=== PATIENT | female | born 1940 | race African-American/Black ===

== ENCOUNTER 2016-12-08 17:21 | Emergency (ER) ==
--- NOTE | 2016-12-08 17:55 | PROVIDER DOCUMENTATION ---
HPI-Neurological Disorder - General Source: patient, EMS - History of Present Illness-Neuro Onset/Duration: reports: abrupt, just prior to arrival Timing: reports: resolved prior to arrival Context: reports: found unresponsive by family Any recent trauma/injury?: reports: none New weakness or altered sensation location:: reports: none Cognitive Baseline: alert, oriented x3 Associated Symptoms: reports: seizures Similar Symptoms Previously?: Yes (Pt has hx of seizures but no seizure medication) - Seizure First time to have a seizure?: No Witnessed seizure?: Yes (family witnessed it) Episode details: reports: unknown duration, unknown number Episode Frequency: occasional episodes Character of Seizure: reports: lost consciousness Seizure related injury: none <Cate Concepcion - Last Filed: 12/08/16 17:49> <Grant Hagan - Last Filed: 12/08/16 21:45> - General Chief Complaint: Seizure Stated Complaint: SEIZURE Time Seen by Provider: 12/08/16 17:43 Allergies/Adverse Reactions: Patient Allergies Allergy/AdvReac Type Severity Reaction Status Date / Time No Known Allergies Allergy Verified 06/10/16 21:50 Home Medications: Home Medication List Medication Instructions Recorded Confirmed Last Taken Type Aspirin [Leny Chewable Aspirin] 81 mg PO DAILY 04/26/15 06/10/16 03/07/16 History Oxybutynin [Ditropan] 5 mg PO DAILY 04/26/15 06/10/16 03/07/16 History Sitagliptin Phos/Metformin HCl 1 tab PO DAILY 03/07/16 06/11/16 03/07/16 History [Janumet 50-500 mg Tablet] PRAVAstatin [Pravachol] 40 mg PO QHS #30 tablet 03/08/16 06/10/16 Unknown Rx Acetaminophen [Tylenol Extra 500 mg PO Q8H PRN PRN 04/08/16 06/10/16 Unknown History Strength] Allopurinol [Zyloprim] 300 mg PO DAILY 04/08/16 06/10/16 Unknown History Bisacodyl [Dulcolax] 5 mg PO DIRECTED PRN 04/08/16 06/10/16 Unknown History Lisinopril/Hydrochlorothiazide 1 each PO DAILY 04/08/16 06/10/16 Unknown History [Lisinopril-Hctz 20-12.5 mg Tab] Meloxicam 15 mg PO DAILY 04/08/16 06/10/16 Unknown History Sitagliptin Phos/Metformin HCl 1 tab PO QHS 06/10/16 06/10/16 Unknown History [Janumet 50-500 mg Tablet] Tramadol HCl 50 mg PO TID PRN PRN 06/10/16 06/10/16 Unknown History Allopurinol [Zyloprim] 300 mg PO DAILY #0 tablet 06/12/16 Unknown Rx - History of Present Illness-Neuro Nature of Presenting Problem: 76 yo AAWagner is brought to ED by EMS following a seizure at home in her bed. Pt denies hitting her head or biting her tongue. Pt has hx of seizures but is not on seizure medication. Upon arrival to ED, pt is alert and oriented and in no apparent distress. (Cate Concepcion) Review of Systems - Adult - REVIEW OF SYSTEMS - ADULT Constitutional: reports: no symptoms reported. denies: chills, fever Eyes: reports: no symptoms reported. denies: decreased vision, double vision Ears, Nose, Mouth & Throat: reports: no symptoms reported. denies: ear pain, tinnitus, mouth swelling Cardiovascular: reports: no symptoms reported. denies: chest pain, heart murmur Respiratory: reports: no symptoms reported. denies: cough, shortness of breath Gastrointestinal: reports: no symptoms reported. denies: nausea, vomiting Genitourinary: reports: no symptoms reported. denies: dysuria, flank pain Musculoskeletal: reports: no symptoms reported. denies: joint pain, joint swelling Integumentary: reports: no symptoms reported. denies: hives, itching Neurological: reports: seizure. denies: headache/migraines Psychiatric: reports: no symptoms reported. denies: anxiety, depression Endocrine: reports: no symptoms reported. denies: cold intolerance, heat intolerance Hematologic/Lymphatic: reports: no symptoms reported. denies: blood clots, lymphedema Allergic/Immunologic: reports: no symptoms reported. denies: allergic reactions , eczema All Other Systems: Reviewed and Negative <Cate Concepcion - Last Filed: 12/08/16 17:49> Past History - Adult - PAST MEDICAL HISTORY-ADULT Review of Records: reports: Old Records Reviewed, Nursing Assessment Review, Medications Reviewed Major Childhood Illnesses: reports: denies history Cardiovascular: reports: HTN Respiratory: reports: denies history Gastrointestinal: reports: denies history Genitourinary: reports: denies history Musculoskeletal: reports: denies history Neurological: reports: denies history Endocrine/Immune: reports: cancer, Diabetes Other Conditions: reports: other (gout) - PRIOR SURGERIES/PROCEDURES Surgical/Procedure History: reports: hysterectomy, orthopedic (extremity) ( carpal tunnel) - IMMUNIZATION STATUS Childhood Immunizations: See Nurse Assessment Flu Vaccine: See Nurse Assessment - FAMILY HISTORY Family History: reviewed, not pertinent <Cate Concepcion - Last Filed: 12/08/16 17:49> Physical Exam- Neurological - Physical Exam-Neuro Initial Vital Signs Reviewed: Yes General Appearance: alert, mild distress Eye Exam: bilateral eye: normal inspection, PERRL, EOMI HENMT: normocephalic/atraumatic, moist mucous membranes, normal ENT inspection Head Injury: no evidence of injury Neck: non-tender, full range of motion, supple Respiratory: chest non-tender, lungs clear, normal breath sounds Cardiovascular: normal peripheral pulses, regular rate, rhythm Abdominal Exam: normal bowel sounds, non tender, soft Lymphatic: no adenopathy Extremity: normal range of motion, non-tender insurance administrative assistant Exam: normal hearing, normal speech, PERRL Coordination/Gait: normal finger to nose Motor/Sensory: no motor deficit, no sensory deficit, no pronator drift Neurologic: grossly normal, no motor/sensory deficits Integumentary: normal color, normal turgor, warm/dry Psych/Mental Status: normal mood/affect, normal thought content, normal thought process, oriented x 3 - Glascow Coma Scale Best Eye Response: (4) open spontaneously Best Verbal Response: (5) oriented Best Motor Response: (6) obeys commands Total Glascow Score: 15 <Cate Concepcion - Last Filed: 12/08/16 17:49> Progress <Cate Concepcion - Last Filed: 12/08/16 17:49> - EKG 1 Time of EKG reading by physician:: 17:54 EKG Read and Signed by:: Juan Claire EKG Interpretation (*Must complete 3 of following elements*): Abnormal Rate: 66 Rhythm: NSR [place]: normal QRS: normal CO Interval: normal Comments: ST AND T WAVE ABNORMALITY. - XRAY 1 XRAY: Bilateral XRAY Study: Chest XRAY Interpretation: NEGATIVE - CT/MRI 1 CT Study: Head CT Results: NO HEMORRHAGE. CHRONIC MICROVASCULAR ISCHEMIC CHANGES. <Grant Hagan - Last Filed: 12/08/16 21:45> - PLAN OF CARE/RESULTS Progress/Plan/Lab Results: Laboratory Tests 12/08/16 12/08/16 12/08/16 17:40 17:40 17:40 WBC RBC Hgb Hct MCV MCH MCHC RDW Std Deviation Plt Count MPV Immature Gran % (Auto) Neut % (Auto) Lymph % (Auto) [place] % (Auto) Eos % (Auto) Baso % (Auto) Immature Gran # (Auto) Neut # (Auto) Lymph # (Auto) [place] # (Auto) Eos # (Auto) Baso # (Auto) PT INR APTT (Factor Assay) Sodium 132 L Potassium 3.7 Chloride 95 L Carbon Dioxide 19 L Anion Gap 18 BUN 8 Creatinine 0.7 Estimated GFR/1.73 m2 > 60 BUN/Creatinine Ratio 11 Glucose 139 H Calculated Osmolality 265 Calcium 9.0 Total Bilirubin 0.60 AST 17 ALT 9 L Alkaline Phosphatase 92 Creatine Kinase 44 Troponin T < 0.010 Total Protein 6.7 Albumin 3.6 Globulin 3.0 Albumin/Globulin Ratio 1.0 Plasma Lactate Urine Source Urine Color Urine Clarity Urine pH Ur Specific [place] Urine Protein Urine Ketones Urine Blood Urine Nitrite Urine Bilirubin Urine Urobilinogen Urine Microscopic RBC Urine WBC Urine Microscopic WBC Ur Epithelial Cells Urine Bacteria Urine Glucose Urine Opiates Screen Ur Oxycodone Screen Urine Methadone Screen Ur Barbituates Screen Ur Tricyclics Screen Ur Phencyclidine Scrn Ur Amphetamines Screen U Methamphetamines Scrn Urine MDMA Screen U Benzodiazepines Scrn Urine Cocaine Screen U Cannabinoids Screen Plasma/Serum Ethyl Alc 12/08/16 12/08/16 12/08/16 17:40 17:40 18:30 WBC 11.85 H RBC 4.67 Hgb 13.0 Hct 39.3 MCV 84.2 MCH 27.8 MCHC 33.1 RDW Std Deviation 16.2 H Plt Count 316 MPV 12.0 H Immature Gran % (Auto) 0.3 Neut % (Auto) 71.6 Lymph % (Auto) 18.6 L [place] % (Auto) 8.0 Eos % (Auto) 1.3 Baso % (Auto) 0.2 Immature Gran # (Auto) 0.04 Neut # (Auto) 8.48 H Lymph # (Auto) 2.21 [place] # (Auto) 0.95 H Eos # (Auto) 0.15 Baso # (Auto) 0.02 PT 14.3 INR 1.08 APTT (Factor Assay) 40.0 Sodium Potassium Chloride Carbon Dioxide Anion Gap BUN Creatinine Estimated GFR/1.73 m2 BUN/Creatinine Ratio Glucose Calculated Osmolality Calcium Total Bilirubin AST ALT Alkaline Phosphatase Creatine Kinase Troponin T Total Protein Albumin Globulin Albumin/Globulin Ratio Plasma Lactate Urine Source CLEAN CATCH Urine Color YELLOW Urine Clarity SL. CLOUDY A Urine pH 7.0 Ur Specific [place] 1.005 Urine Protein TRACE A Urine Ketones NEGATIVE Urine Blood NEGATIVE Urine Nitrite NEGATIVE Urine Bilirubin NEGATIVE Urine Urobilinogen NORMAL Urine Microscopic RBC Not Reportable Urine WBC NEGATIVE Urine Microscopic WBC <10 Ur Epithelial Cells <10 Urine Bacteria 2+ Urine Glucose NEGATIVE Urine Opiates Screen Ur Oxycodone Screen Urine Methadone Screen Ur Barbituates Screen Ur Tricyclics Screen Ur Phencyclidine Scrn Ur Amphetamines Screen U Methamphetamines Scrn Urine MDMA Screen U Benzodiazepines Scrn Urine Cocaine Screen U Cannabinoids Screen Plasma/Serum Ethyl Alc 12/08/16 12/08/16 18:30 18:43 WBC RBC Hgb Hct MCV MCH MCHC RDW Std Deviation Plt Count MPV Immature Gran % (Auto) Neut % (Auto) Lymph % (Auto) [place] % (Auto) Eos % (Auto) Baso % (Auto) Immature Gran # (Auto) Neut # (Auto) Lymph # (Auto) [place] # (Auto) Eos # (Auto) Baso # (Auto) PT INR APTT (Factor Assay) Sodium Potassium Chloride Carbon Dioxide Anion Gap BUN Creatinine Estimated GFR/1.73 m2 BUN/Creatinine Ratio Glucose Calculated Osmolality Calcium Total Bilirubin AST ALT Alkaline Phosphatase Creatine Kinase Troponin T Total Protein Albumin Globulin Albumin/Globulin Ratio Plasma Lactate 3.3 H Urine Source Urine Color Urine Clarity Urine pH Ur Specific [place] Urine Protein Urine Ketones Urine Blood Urine Nitrite Urine Bilirubin Urine Urobilinogen Urine Microscopic RBC Urine WBC Urine Microscopic WBC Ur Epithelial Cells Urine Bacteria Urine Glucose Urine Opiates Screen NONE DETECTED Ur Oxycodone Screen NONE DETECTED Urine Methadone Screen NONE DETECTED Ur Barbituates Screen NONE DETECTED Ur Tricyclics Screen NONE DETECTED Ur Phencyclidine Scrn NONE DETECTED Ur Amphetamines Screen NONE DETECTED U Methamphetamines Scrn NONE DETECTED Urine MDMA Screen NONE DETECTED U Benzodiazepines Scrn NONE DETECTED Urine Cocaine Screen NONE DETECTED U Cannabinoids Screen NONE DETECTED Plasma/Serum Ethyl Alc Orders Category Date Time Status Cardiac Monitoring DIRECTED Care 12/08/16 17:30 Active Finger Stick Blood Sugar (ED) DIRECTED Care 12/08/16 17:30 Active Oxygen Therapy- ED Nursing DIRECTED Care 12/08/16 17:30 Active Saline Loc NOW Care 12/08/16 17:30 Active CHEST-PORTABLE [RAD] Stat Exams 12/08/16 17:30 Draft HEAD W/O CONTRAST [CT] Stat Exams 12/08/16 19:24 Draft ALCOHOL BLOOD Stat Lab 12/08/16 17:40 Completed CBC WITH ELECTRONIC DIFF [HEME] Stat Lab 12/08/16 17:40 Completed CK PROFILE [SP CHEM] Stat Lab 12/08/16 17:40 Completed COMPREHENSIVE METABOLIC PANEL [CHEM] Stat Lab 12/08/16 17:40 Completed LACTATE, PLASMA [CHEM] Stat Lab 12/08/16 18:43 Completed PROTIME WITH INR PL [COAG] Stat Lab 12/08/16 17:[address] [COAG] Stat Lab 12/08/16 17:40 Completed TROPONIN T Stat Lab 12/08/16 17:[address] W/POSS RFLX CULT [URINALYSIS] Stat Lab 12/08/16 18:30 Completed URINE CULTURE [RM] Routine Lab 12/08/16 19:23 Ordered [address]INE DRUG SCREEN [address] Stat Lab 12/08/16 18:30 Completed Pulse Oximetry Stat Oth 12/08/16 17:30 Active EKG [EKG] Stat Ther 12/08/16 17:30 Draft Vital Signs - 24 hr 12/08/16 12/08/16 12/08/16 17:22 18:32 19:40 Temperature 99.2 F Pulse Rate 83 58 L 63 Respiratory 18 18 18 Rate Blood Pressure 188/85 172/077 174/082 O2 Sat by Pulse 96 99 100 Oximetry 12/08/16 20:40 Temperature Pulse Rate 62 Respiratory 17 Rate Blood Pressure 139/083 O2 Sat by Pulse 99 Oximetry (Grant Hagan) Departure <Cate Concepcion - Last Filed: 12/08/16 17:49> - Departure Time of Disposition Order: 21:44 Certified Medical Emergency: Emergent <Grant Hagan - Last Filed: 12/08/16 21:45> - Departure DIAGNOSIS: Seizure UTI (urinary tract infection) Qualifiers: Urinary tract infection type: site unspecified Hematuria presence: with hematuria Qualified Code(s): N39.0 - Urinary tract infection, site not specified ; R31.9 - Hematuria, unspecified Disposition: HOME 01 Condition: Stable Additional Instructions: ED Follow Up Instructions: You have been treated by a care provider in the Emergency Department. These instructions are being provided to you so you can have an understanding of how to care for yourself upon discharge. Upon discharge from the Emergency Department, you are responsible for making arrangements for follow-up care by a physician of your choice. Take all prescribed medications as directed. Return to the Emergency Department immediately for any new or worsening symptoms. You may call the Physician Referral phone number at [phone] to obtain a list of Physicians who are taking new patients. Attestation - Scribe Verification/Attestation Scribe:: Cate Concepcion Acting as Scribe for:: Clay Grider Scribe documention review:: This chart was documented by a scribe and accurately reflects the service the provider performed and the decisions made by the provider. - Physician/ GENNA Attestation Patient care was provided by Advanced Practice Provider:: No <Cate Concepcion - Last Filed: 12/08/16 17:49> - Scribe Verification/Attestation Scribe:: Grant Hagan Acting as Scribe for:: Juan Claire Scribe documention review:: This chart was documented by a scribe and accurately reflects the service the provider performed and the decisions made by the provider. <Grant Hagan - Last Filed: 12/08/16 21:45> Physician Attestation
[2016-12-08 17:56] LABS: MANUAL DIFF NEEDED? NO
[2016-12-08 17:58] LABS: BASO% 0.2 % (0.0-0.8); EOS# 0.15 X1000 (0.0-0.7); EOS% 1.3 % (0.0-10.0); HEMATOCRIT 39.3 % (37.0-47.0); IMM GRAN# 0.04 X1000 (0.0-0.04); IMM GRAN% 0.3 % (0.0-0.5); LYMPH# 2.21 X1000 (1.2-3.4); LYMPH% 18.6 % (20.5-51.1); MCH 27.8 PG (27-31); MCHC 33.1 g/dL (33-37); MCV 84.2 FL (81-99); MONO# 0.95 X1000 (0.11-0.59); NEUT% 71.6 % (42.2-75.2); PLT 316 X1000 (130-400); RBC 4.67 XMIL (4.2-5.4)
[2016-12-08 18:25] LABS: AGAP 18; ALBUMIN 3.6 g/dL (3.5-5.0); ALKALINE PHOSPHATASE 92 U/L (32-104); BUN 8 mg/dL (8-22); CHLORIDE 95 mmol/L (98-107); CK PROFILE 44 U/L (24-173); COSMO 265; GOT 17 U/L (10-30); GPT 9 U/L (10-36); POTASSIUM 3.7 mmol/L (3.5-5.1); SODIUM 132 mmol/L (136-145); TCO2 19 mmol/L (25-35); TOTAL PROTEIN 6.7 g/dL (6.3-8.3)
[2016-12-08 18:34] LABS: URINE SOURCE CLEAN CATCH
[2016-12-08 18:42] LABS: INR 1.08 (0.86-1.15); PROTIME 14.3 Seconds (12.1-15.5)
--- NOTE | 2016-12-08 18:48 | EKG Report ---
Test Performed on : 12/08/2016 5:53:05 PM Test Reason : AMS Blood Pressure : / mmHG Vent. Rate : 066 BPM Atrial Rate : 066 BPM P-R Int : 144 ms QRS Dur : 094 ms QT Int : 414 ms P-R-T Axes : 059 014 101 degrees QTc Int : 434 ms Normal sinus rhythm. ST & T wave abnormality, consider lateral ischemia Abnormal ECG When compared with ECG of 11-JUN-2016 00:16, Minimal criteria for Inferior infarct are no longer present T wave inversion now evident in Anterolateral leads QT has shortened Unconfirmed Result
[2016-12-08 19:17] LABS: UR AMPHETAMINES QUAL NONE DETECTED (NONE DETECT); UR BARBITUATES QUAL NONE DETECTED (NONE DETECT); UR BENZODIAZEPIN QUAL NONE DETECTED (NONE DETECT); UR CANNABINOIDS QUAL NONE DETECTED (NONE DETECT); UR COCAINE QUAL NONE DETECTED (NONE DETECT); UR MDMA QUAL NONE DETECTED (NONE DETECT); UR METHADONE QUAL NONE DETECTED (NONE DETECT); UR METHAMPHETAMINE QUAL NONE DETECTED (NONE DETECT); UR OPIATES QUAL NONE DETECTED (NONE DETECT); UR OXYCODONE QUAL NONE DETECTED (NONE DETECT); UR PCP QUAL NONE DETECTED (NONE DETECT); UR TCA QUAL NONE DETECTED (NONE DETECT)
[2016-12-08 19:19] LABS: BILIRUBIN URINE NEGATIVE (NEGATIVE); BLOOD URINE NEGATIVE (NEGATIVE); CLARITY SL. CLOUDY (CLEAR); COLOR YELLOW; GLUCOSE URINE NEGATIVE (NEGATIVE); LEUKOCYTES URINE NEGATIVE (NEGATIVE); NITRITE URINE NEGATIVE (NEGATIVE); PROTEIN URINE TRACE mg/dL (NEGATIVE); SP GRAVITY URINE 1.005; UROBILINOGEN URINE NORMAL
[2016-12-08 19:23] LABS: URINE CULTURE PL NEEDED? YES; URINE EPITHELIAL CELLS <10 /HPF (<10); URINE WBC <10 /HPF (<10)
--- NOTE | 2016-12-08 19:38 | Diag Imaging Result Document ---
PROCEDURE NAME: CHEST-PORTABLE - 12/08/2016 PORTABLE CHEST: COMPARISON: Compared to 04/08/2016. The lungs are well expanded. The heart is not enlarged. The vessels are not distended. No pneumonia. No pleural effusions identified. IMPRESSION: Negative chest.
--- NOTE | 2016-12-08 21:35 | Diag Imaging Result Document ---
PROCEDURE NAME: HEAD W/O CONTRAST - 12/08/2016 CT BRAIN WITHOUT CONTRAST COMPARISON: 06/10/16 FINDINGS: No parenchymal hemorrhage. No epidural or subdural hematoma. No subarachnoid hemorrhage. There are prominent microvascular ischemic changes. No mass identified on this noncontrasted exam. No midline shift. No hydrocephalus. No sinus opacification. IMPRESSION: 1. No hemorrhage. 2. Chronic microvascular ischemic changes. A preliminary report was given at 9:24 p.m.
[2016-12-08 22:12] VITALS: BP 157/090
== END 2016-12-08 22:12 | disposition home or self-care (01) ==
LOC: P.ED 17:21
DX: R56.9 Unspecified convulsions (principal); N39.0 Urinary tract infection, site not specified; R31.9 Hematuria, unspecified; I10 Essential (primary) hypertension; E11.9 Type 2 diabetes mellitus without complications; Z85.9 Personal history of malignant neoplasm, unspecified; M10.9 Gout, unspecified; R94.31 Abnormal electrocardiogram [ECG] [EKG]; Z79.899 Other long term (current) drug therapy; Z79.1 Long term (current) use of non-steroidal anti-inflammatories (NSAID); Z79.82 Long term (current) use of aspirin
CPT/HCPCS: 70450; 71010; 80053; 80305; 81001; 82550; 83605; 84484; 85025; 85610; 85730; 87088; 93005; G0480; 80320

== ENCOUNTER 2017-05-15 20:58 | Observation (INO) ==
[2017-05-15] MEDS ORDERED: ATIVAN ONE (22:08)
[2017-05-15] MEDS ORDERED: ATIVAN IV ONE (22:11)
[2017-05-15 23:05] LABS: MANUAL DIFF NEEDED? NO
[2017-05-15 23:11] LABS: BASO% 0.2 % (0.0-0.8); EOS% 0.7 % (0.0-10.0); HEMATOCRIT 36.6 % (37.0-47.0); HEMOGLOBIN 12.2 g/dL (12.0-16.0); IMM GRAN% 0.7 % (0.0-0.5); LYMPH# 3.07 X1000 (1.2-3.4); LYMPH% 20.7 % (20.5-51.1); MCH 29.3 PG (27-31); MCHC 33.3 g/dL (33-37); MCV 87.8 FL (81-99); MONO# 0.74 X1000 (0.11-0.59); MPV 12.8 FL (7.4-10.4); NEUT% 72.7 % (42.2-75.2); PLT 307 X1000 (130-400); RBC 4.17 XMIL (4.2-5.4)
[2017-05-15 23:18] LABS: CALCIUM 9.1 mg/dL (8.8-10.2); TOTAL BILIRUBIN 0.4 mg/dL (0.20-1.00); TOTAL PROTEIN 7.1 g/dL (6.3-8.3)
[2017-05-15] MEDS ORDERED: KEPPRA 1,000 MG/NS 1,000 MG/100 ML IVPB IV ONE (23:53)
[2017-05-15] MEDS ORDERED: NS 500 ML IV ONE (23:54)
--- NOTE | 2017-05-16 | PROVIDER DOCUMENTATION ---
HPI-General Adult - General Chief Complaint: Seizure Stated Complaint: seizure Time Seen by Provider: 05/15/17 22:56 Source: family, RN notes reviewed Unable to obtain history due to:: altered (Post seizure) Allergies/Adverse Reactions: Patient Allergies Allergy/AdvReac Type Severity Reaction Status Date / Time No Known Allergies Allergy Verified 05/15/17 21:05 Home Medications: Home Medication List Medication Instructions Recorded Confirmed Last Taken Type Aspirin [Leny Chewable Aspirin] 81 mg PO DAILY 04/26/15 06/10/16 03/07/16 History Oxybutynin [Ditropan] 5 mg PO DAILY 04/26/15 06/10/16 03/07/16 History Sitagliptin Phos/Metformin HCl 1 tab PO DAILY 03/07/16 06/11/16 03/07/16 History [Janumet 50-500 mg Tablet] PRAVAstatin [Pravachol] 40 mg PO QHS #30 tablet 03/08/16 06/10/16 Unknown Rx Acetaminophen [Tylenol Extra 500 mg PO Q8H PRN PRN 04/08/16 06/10/16 Unknown History Strength] Allopurinol [Zyloprim] 300 mg PO DAILY 04/08/16 06/10/16 Unknown History Bisacodyl [Dulcolax] 5 mg PO DIRECTED PRN 04/08/16 06/10/16 Unknown History Lisinopril/Hydrochlorothiazide 1 each PO DAILY 04/08/16 06/10/16 Unknown History [Lisinopril-Hctz 20-12.5 mg Tab] Meloxicam 15 mg PO DAILY 04/08/16 06/10/16 Unknown History Sitagliptin Phos/Metformin HCl 1 tab PO QHS 06/10/16 06/10/16 Unknown History [Janumet 50-500 mg Tablet] Tramadol HCl 50 mg PO TID PRN PRN 06/10/16 06/10/16 Unknown History Allopurinol [Zyloprim] 300 mg PO DAILY #0 tablet 06/12/16 Unknown Rx Nitrofurantoin Monohyd/M-Cryst 100 mg PO BID #20 capsule 12/08/16 Unknown Rx [Macrobid 100 mg Capsule] - History of Present Illness -Gen Adult Nature of Presenting Problems: Patient presents today with family due to 2 seizures at home. PMH of seizure disorder-not currently taking medications for it. While in the ER suffered two more seizures. Provided with Ativan and 1G Keppra. Patient stabilized. CT head no acute abnormalities noted. Location of Pain/Injury: reports: none Pain Radiation: reports: no radiation Quality of Pain: reports: none Severity: reports: moderate Onset/Duration: reports: abrupt (Today seizure x 2) Timing: reports: still present Context/Activities at Onset: reports: none Review of Systems - Adult - REVIEW OF SYSTEMS - ADULT Constitutional: reports: see HPI Eyes: reports: no symptoms reported Ears, Nose, Mouth & Throat: reports: no symptoms reported Cardiovascular: reports: no symptoms reported Respiratory: reports: no symptoms reported Gastrointestinal: reports: no symptoms reported Genitourinary: reports: no symptoms reported Musculoskeletal: reports: no symptoms reported Integumentary: reports: no symptoms reported Neurological: reports: seizure Psychiatric: reports: no symptoms reported Endocrine: reports: no symptoms reported Hematologic/Lymphatic: reports: no symptoms reported Allergic/Immunologic: reports: no symptoms reported All Other Systems: Reviewed and Negative Past History - Adult - PAST MEDICAL HISTORY-ADULT Review of Records: reports: Old Records Reviewed Major Childhood Illnesses: reports: denies history Cardiovascular: reports: HTN Respiratory: reports: denies history Gastrointestinal: reports: denies history Genitourinary: reports: denies history Musculoskeletal: reports: denies history Neurological: reports: denies history Endocrine/Immune: reports: cancer, Diabetes Other Conditions: reports: other (gout) - PRIOR SURGERIES/PROCEDURES Surgical/Procedure History: reports: hysterectomy, orthopedic (extremity) ( carpal tunnel) - IMMUNIZATION STATUS Childhood Immunizations: See Nurse Assessment Flu Vaccine: See Nurse Assessment - FAMILY HISTORY Family History: reviewed, not pertinent Physical Exam-General - CONSTITUTIONAL General Appearance: appears well (Post seizure --sleeping --in no acute distress.) - EYES Eyes: PERRL/EOMI - HEAD, EARS, NOSE, MOUTH & THROAT HENMT: normocephalic/atraumatic - NECK Neck: non-tender - RESPIRATORY Respiratory: lungs clear - CARDIOVASCULAR Cardiovascular: normal peripheral pulses, regular rate, rhythm - GASTROINTESTINAL (ABDOMEN) Abdominal Exam: normal bowel sounds, non tender, soft - LYMPHATIC Lymphatic: no adenopathy - MUSCULOSKELETAL Back Exam: normal inspection - NEUROLOGIC Neurologic: other (patient is non verbal in likely post ictal state.) Progress - PLAN OF CARE/RESULTS Progress/Plan/Lab Results: Vital Signs - 8 hr 05/15/17 20:59 05/15/17 21:00 05/15/17 22:00 Temperature 97.2 F L Pulse Rate 81 82 73 Respiratory Rate 14 21 18 Blood Pressure 143/93 121/69 O2 Sat by Pulse Oximetry 99 100 99 05/15/17 22:15 05/15/17 22:30 Temperature Pulse Rate 73 83 Respiratory Rate 22 18 Blood Pressure 165/85 O2 Sat by Pulse Oximetry 99 96 Laboratory Results - last 24 hr 05/15/17 05/15/17 22:20 22:20 WBC 14.82 H RBC 4.17 L Hgb 12.2 Hct 36.6 L MCV 87.8 MCH 29.3 MCHC 33.3 RDW Std Deviation 16.1 H Plt Count 307 MPV 12.8 H Immature Gran % (Auto) 0.7 H Neut % (Auto) 72.7 Lymph % (Auto) 20.7 [place] % (Auto) 5.0 Eos % (Auto) 0.7 Baso % (Auto) 0.2 Immature Gran # (Auto) 0.10 H Neut # (Auto) 10.78 H Lymph # (Auto) 3.07 [place] # (Auto) 0.74 H Eos # (Auto) 0.10 Baso # (Auto) 0.03 Sodium 137 Potassium 4.0 Chloride 94 L Carbon Dioxide 19 L Anion Gap 25 BUN 21 Creatinine 1.5 H Estimated GFR/1.73 m2 34 BUN/Creatinine Ratio 14 Glucose 153 H Calculated Osmolality 280 Calcium 9.1 Total Bilirubin 0.40 AST 20 ALT 8 L Alkaline Phosphatase 117 H Total Protein 7.1 Albumin 4.0 Globulin 3.0 Albumin/Globulin Ratio 1.0 Orders Category Date Time Status CHEST-2 VIEWS [RAD] Stat Exams 05/15/17 23:[address] HEAD W/O CONTRAST [CT] Stat Exams 05/15/17 23:51 Ordered CBC WITH DIFF [HEME] Stat Lab 05/15/17 22:20 Completed COMPREHENSIVE METABOLIC PANEL [CHEM] Stat Lab 05/15/17 22:20 Completed LACTATE, PLASMA [CHEM] Stat Lab 05/15/17 23:50 Ordered ua [URINALYSIS PL W/POSS RFLX CULT] [URINALYSIS] Stat Lab 05/15/17 23:50 Uncollected 0.9% Sodium Chloride Inj [Ns] 500 ml Med 05/15/17 23:54 Ordered IV 999 mls/hr Levetiracetam [Keppra] 1,000 mg Med 05/15/17 23:53 Ordered 0.9% Sodium Chloride Inj [Ns] 100 ml IV NOW Lorazepam [Ativan] Med 05/15/17 22:11 Discontinued 1 mg IV NOW ONE Lorazepam [Ativan] Med 05/15/17 22:08 Discontinued 2 mg .ROUTE .STK-MED ONE Result Diagrams: 05/15/17 22:20 05/15/17 22:20 - XRAY 1 XRAY: Bilateral Impression: See EMR Report - CT/MRI 1 CT Study: Head Impression: Normal, See EMR Report Departure - Departure Date of Disposition Decision: 05/16/17 Time of Disposition Decision: 01:45 DIAGNOSIS: Seizure, Leukocytosis Disposition: ADMITTED INPATIENT 09 Certified Medical Emergency: Emergent Condition: Fair Additional Freetext Instructions: Discussed case with Dr. Martin (PCP). Patient will be admitted to the floor for observation under telemetry. Further management pending patient status. Referrals and Follow-Ups: Romeo Martin MD [Primary Care Provider] - - Critical Care Note This patient required my direct & personal management of CC.: No Attestation - Physician/ GENNA Attestation Patient care was provided by Advanced Practice Provider:: No The physician spent face to face time with patient:: Yes Advanced Practice Provider documentation review:: Supervising physician onsite and consulted in the evaluation and care of this patient. The physician did have a face to face encounter with the patient.
[2017-05-16] MEDS ORDERED: NS 500 ML ONE (00:42)
[2017-05-16 01:42] LABS: BILIRUBIN URINE NEGATIVE (NEGATIVE); BLOOD URINE NEGATIVE (NEGATIVE); CLARITY CLEAR (CLEAR); COLOR YELLOW; GLUCOSE URINE NEGATIVE (NEGATIVE); LEUKOCYTES URINE NEGATIVE (NEGATIVE); NITRITE URINE NEGATIVE (NEGATIVE); PROTEIN URINE NEGATIVE (NEGATIVE); UROBILINOGEN URINE NORMAL
[2017-05-16 01:59] LABS: URINE CULTURE PL NEEDED? YES; URINE EPITHELIAL CELLS <10 /HPF (<10); URINE RBC <10 /HPF (<10); URINE WBC NS /HPF (<10)
[2017-05-16 02:01] LABS: URINE SOURCE CATH
--- NOTE | 2017-05-16 05:56 | Diag Imaging Result Doc PS360 ---
EXAM: CT HEAD W/O CONTRAST HISTORY: Seizures TECHNIQUE: CT brain without. Dose reduction protocol. COMPARISON: 12/08/2016 FINDINGS: No parenchymal hemorrhage. No epidural or subdural hematoma. No subarachnoid hemorrhage. No mass identified on this noncontrasted exam. No hydrocephalus. There are chronic microvascular ischemic changes and mild atrophy. No sinus opacification. IMPRESSION: Mild atrophy with chronic microvascular ischemic changes. A preliminary report was given at 1:04 AM Electronically signed by Margarito Sutherland 05/16/2017 5:53 AM
--- NOTE | 2017-05-16 06:28 | Diag Imaging Result Doc PS360 ---
EXAM: CHEST-2 VIEWS HISTORY: Seizures TECHNIQUE: Two views COMPARISON: 12/08/2016 FINDINGS: Poor inspiratory effort. The heart is not enlarged. The vessels are not distended. There are no infiltrates. No pleural effusions. IMPRESSION: No acute abnormality. Electronically signed by Margarito Sutherland 05/16/2017 6:25 AM
[2017-05-16] MEDS ORDERED: DULCOLAX PO PRN (08:18)
[2017-05-16] MEDS ORDERED: ULTRAM PO PRN (08:18)
[2017-05-16] MEDS ORDERED: TYLENOL PO PRN (08:18)
[2017-05-16] MEDS ORDERED: KEPPRA ONE (08:27)
[2017-05-16] MEDS ORDERED: KEPPRA 500 MG in NS 100 ML IV SCH (08:30)
[2017-05-16] MEDS ORDERED: KEPPRA 500 MG/NS 500 MG/100 ML IVPB IV SCH (08:30)
[2017-05-16] MEDS ORDERED: GLUCOPHAGE PO SCH (09:00)
[2017-05-16] MEDS ORDERED: JANUVIA PO SCH (09:00)
[2017-05-16] MEDS ORDERED: DITROPAN PO SCH (09:00)
[2017-05-16] MEDS ORDERED: HYDROCHLOROTHIAZIDE PO SCH (09:00)
[2017-05-16] MEDS ORDERED: ASPIRIN PO SCH (09:00)
[2017-05-16] MEDS ORDERED: PRINIVIL PO SCH (09:00)
[2017-05-16] MEDS ORDERED: MOBIC PO SCH (09:00)
[2017-05-16] MEDS ORDERED: ZYLOPRIM PO SCH (09:00)
--- NOTE | 2017-05-16 09:50 | HISTORY AND PHYSICAL ---
CHIEF COMPLAINT: Seizures. PRESENT ILLNESS: This is the first recent [facility] admission for this 76- year-old, black female, who presented to the emergency room after 2 seizures at home last night. She experienced 2 additional seizures witnessed in the emergency room. She was given a loading dose of Keppra 1000 mg and Ativan IV. She had no further seizures. Patient is somnolent on exam this morning, and not answering questions well due to her Ativan. Her daughter states that she has had some seizures intermittently since the first of the year. She has gone to the emergency room several times, been evaluated, and sent home without any medicine. This was not known to me. PAST MEDICAL HISTORY: No recent hospitalizations. 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 PRESENT MEDICATIONS: 1. Tylenol 500 mg q. 8 hours p.r.n. headache. 2. Allopurinol 300 mg one daily. 3. Aspirin 81 mg daily. 4. Dulcolax 5 mg p.r.n. constipation. 5. Mobic 15 mg once daily. 6. Ditropan 5 mg once daily. 7. Pravastatin 40 mg at bedtime. 8. Tramadol 50 mg t.i.d. p.r.n. pain. 9. Lisinopril/hydrochlorothiazide 20/12.5 one daily. 10. Janumet 50/500 one daily. ALLERGIES: None known. REVIEW OF SYSTEMS: Significant for obesity, hypertension, osteoarthritis, hyperactive bladder. There has been no recent weight change. SOCIAL HISTORY: Single and is assisted by family. She denies smoking or alcohol usage. PHYSICAL EXAMINATION: VITAL SIGNS: Temperature 98.9 degrees, heart rate 78, respirations 22, blood pressure 112/54, O2 saturation on room air 100%. GENERAL: Patient is somnolent and appropriate, but poorly responsive due to sedation. HEENT: Pupils equal, round, and reactive to light. Pharynx benign. NECK: Supple with no mass or lymphadenopathy. HEART: Regular in rate and rhythm with no murmur, rub or gallop. LUNGS: Clear with no rales or rhonchi. ABDOMEN: Soft with no mass, tenderness or organomegaly. EXTREMITIES: No cyanosis, clubbing, or edema. RECTAL/GENITALIA: Deferred. IMPRESSION: 1. Seizures, undetermined etiology. 2. Hypertension. 3. Hypercholesterolemia. 4. Diabetes. Imaging studies, Including chest x-ray and CT of her head, were unremarkable. cc: Romeo Martin MD MTDD
[2017-05-16] MEDS ORDERED: PROTONIX PO SCH (10:00)
[2017-05-16] MEDS ORDERED: IMDUR PO SCH (10:00)
[2017-05-16] MEDS ORDERED: LASIX PO SCH (10:00)
[2017-05-16] MEDS ORDERED: KLOR-CON PO SCH (10:00)
[2017-05-16] MEDS ORDERED: BRILINTA PO SCH (10:00)
[2017-05-16 15:43] VITALS: BP 80/54
[2017-05-16] MEDS ORDERED: PRAVACHOL PO SCH (21:00)
--- NOTE | 2017-05-17 08:39 | DISCHARGE SUMMARY ---
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 2. Diabetes. 3. Hypertension. 4. Hypercholesterolemia. DISCHARGE MEDICATION: Usual medication at home plus Keppra 500 mg b.i.d. (60). This is the first recent [facility] admission for this 76-year-old, black female, who had apparent seizures at home the night before presentation to the emergency room. She had 2 additional witnessed seizures in the emergency room. She was admitted early this morning and given Keppra 1 g IV, followed by 500 mg q.12 hours. She had no further seizures. INITIAL LABORATORY: Hemoglobin 12.2, hematocrit 36.6, white blood count 14,820. Potassium 4.0, sodium 137, BUN 21, creatinine 1.5, glucose 153. HOSPITAL COURSE: She was somnolent this morning, but alert and responsive this evening. She is somewhat sluggish with answers, and does not remember getting up to the bathroom, despite her daughter reminding her that she had been up several times. She is eating with no nausea. She is discharged home on the above medications to be seen back in the office in 1 week for followup. Discussion will be made concerning her medicines at that time, whether she can discontinue some of them. cc: Romeo Martin MD
== END 2017-05-16 18:09 | disposition home or self-care (01) ==
LOC: P.MEDSURG 20:58 → P.ED 20:58
PROVIDERS: ADMIT Family Medicine; ATTEND Family Medicine

== ENCOUNTER 2019-10-05 09:44 | Inpatient (IN) ==
[2019-10-05] MEDS ORDERED: TYLENOL PO PRN (10:36)
[2019-10-05 12:52] LABS: BASO# 0.03 X1000 (0.0-0.2); BASO% 0.4 % (0.0-0.8); EOS# 0.05 X1000 (0.0-0.7); EOS% 0.6 % (0.0-10.0); HEMATOCRIT 20.3 % (37.0-47.0); HEMOGLOBIN 5.9 g/dL (12.0-16.0); LYMPH# 1.73 X1000 (1.2-3.4); LYMPH% 22.2 % (20.5-51.1); MCHC 29.1 g/dL (33-37); MCV 82.5 FL (81-99); MONO# 0.39 X1000 (0.11-0.59); MPV 10.4 FL (7.4-10.4); NEUT# 5.58 X1000 (1.4-6.5); NEUT% 71.8 % (42.2-75.2); PLT 329 X1000 (130-400); RBC 2.46 XMIL (4.2-5.4); RDW 16.2 % (11.5-14.5); WBC 7.78 X1000 (4.8-10.8)
[2019-10-05] MEDS: CARAFATE LIQUID PO SCH ×3 (13:46→20:12)
[2019-10-05] MEDS ORDERED: NS 500 ML ONE (16:29)
[2019-10-05] MEDS ORDERED: NS 500 ML IV SCH (17:00)
[2019-10-05] MEDS: KEPPRA PO SCH (20:11)
[2019-10-05] MEDS: LIPITOR PO SCH (20:11)
[2019-10-05] MEDS: PROTONIX PO SCH (20:11)
--- NOTE | 2019-10-05 23:34 | HISTORY AND PHYSICAL ---
CHIEF COMPLAINT: Weakness and abdominal pain. PRESENT ILLNESS: This is one of several [facility] admissions for this 79-year-old black female who presented to the office with nonspecific abdominal discomfort and general malaise. Mucous membranes were pale and fingerstick hemoglobin in the office was 3. Hemoglobin in the hospital was 5.9. There is history of peptic ulcer disease. EGD was done by Dr. Burgos in July 2018. She had a gastric ulcer, at that time, and was treated with Protonix and Carafate. There was resolution. She also is taking Eliquis for coronary disease and DVT,carotid disease. She has noticed occasional dark bowel movements over the past couple of weeks. There has been no hematemesis or hematochezia. PAST MEDICAL HISTORY: Hospitalized 08/01/2018 with acute renal failure, ascites, anasarca, anemia secondary to GI bleed, pulmonary edema, erosive gastritis, Schatzki's ring, gastric ulcer in the fundal area, duodenitis, protein calorie malnutrition and history of DVT right leg. PRESENT MEDICATIONS: Tylenol 650 mg q.6 hours p.r.n., isosorbide mononitrate 30 mg daily, Keppra 500 mg b.i.d., levothyroxine 75 mcg, 1 daily, lisinopril 10 mg daily, metformin 500 mg p.o. daily, Protonix 40 mg b.i.d., Januvia 50 mg daily, Carafate 1 g q.6 hours. ALLERGIES: None known. REVIEW OF SYSTEMS: Progressive weakness over several days. There has been no cough or chest congestion. He has had no dysuria. FAMILY HISTORY: Significant for hypertension and heart disease. She has a daughter who had a stroke. She is single and has good family support. PHYSICAL EXAMINATION: VITAL SIGNS: Temperature 98.1 degrees, heart rate 65, respiration 18, blood pressure 127/47, O2 saturation on room air 99%. HEENT: Mucous membranes are pale. Pharynx benign. NECK: Supple with no mass or lymphadenopathy. HEART: Regular in rate and rhythm with no murmur or gallop. LUNGS: Clear with no rales or rhonchi. ABDOMEN: Soft with mild nonspecific and generalized tenderness. Bowel sounds are normal. EXTREMITIES: No cyanosis, clubbing, or edema. RECTAL AND GENITALIA: Deferred. IMPRESSION: 1. Upper gastrointestinal bleed with anemia. 2. History of peptic ulcer disease. 3. Diabetes. 4. Hypertension. 5. History of deep venous thrombosis of her leg. PLAN: Admit for further evaluation, GI consultation, and transfusion with 2 units packed red blood cells. cc: Romeo Martin MD MTDD
[2019-10-06] MEDS: CARAFATE LIQUID PO SCH ×5 (05:43→21:53)
[2019-10-06] MEDS: SYNTHROID PO SCH (06:22)
[2019-10-06] MEDS: KEPPRA PO SCH ×2 (08:50→21:53)
[2019-10-06] MEDS: IMDUR PO SCH (08:50)
[2019-10-06] MEDS: PRINIVIL PO SCH (08:51)
--- NOTE | 2019-10-06 09:06 | PROGRESS NOTE ---
DATE: 10/06/2019 Vital Signs: Temperature 98.2 degrees, heart rate 61, respirations 16, blood pressure 123/41, and O2 saturation on room air 100%. The patient has had no BM since admission, and no nausea. Abdominal pain is a little better. She was transfused 2 units of blood last evening. Lab will be rechecked this afternoon. GI consult is ordered to assess the etiology of GI bleed, and consider EGD. cc: Romeo Martin MD
[2019-10-06 09:27] LABS: HEMATOCRIT 27.9 % (37.0-47.0); HEMOGLOBIN 8.8 g/dL (12.0-16.0)
[2019-10-06] MEDS ORDERED: DIPRIVAN 1% ONE (09:52)
--- NOTE | 2019-10-06 10:49 | GASTROENTEROLOGY CONSULTATION ---
DATE: 10/06/2019 REASON FOR CONSULTATION: Anemia. HISTORY OF PRESENT ILLNESS: Ms. Schwartz is an 79-year-old female with a history of hypertension, diabetes, cholesterol, heart attack s/p stent placement, who presented to the hospital yesterday complaining that she was feeling sick and was nauseated, with left abdominal pain radiating all over to the epigastric area and when she is bending down, it hurts her more, described it as sharp pain. On a scale of 1 to 10, she rated it as 8/10. The patient is on aspirin 81 mg and Xarelto for her DVT and CAD. The patient also mentioned that she was having shortness of breath and palpitations. She went to see her PCP, and he sent her to the hospital. Her last bowel movement was the day before yesterday and noticed that her stools were dark and tarry. 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 She performed an EGD on 08/10/2018, and findings were Schatzki's ring, hiatal hernia, and acute erosive gastritis in the gastric fundus, retained gastric secretions and mild duodenitis. The patient's hemoglobin on admission was 5.9 and hematocrit was 20.3. She has so far received 2 units of blood. Hematocrit and hemoglobin today is 8.8 and 27.9. PAST MEDICAL HISTORY: Hypertension, diabetes, cholesterol , heart attack in 2017 s/p stent placement, lymphoma on the buttock s/p surgery, seizures, coronary artery disease, gout, diverticulosis and DVT PAST SURGICAL HISTORY: Right hemicolectomy, gallbladder surgery, neck surgery, stent placements, and lymphoma removed from the buttock. ALLERGIES: No known drug allergies. SOCIAL HISTORY: The patient is a . She has 3 kids. She was a past smoker. She smoked for 32 years. She consumes alcohol occasionally, has scotch. Denies any illicit drug use. FAMILY HISTORY: Significant for hypertension and heart disease. HOME MEDICATIONS: 1. Pantoprazole 40 mg 1 tablet daily. 2. Keppra 500 mg 1 tablet twice a day. 3. Isosorbide mononitrate 30 mg 1 tablet daily. 4. Levothyroxine 0.075 mg 1 tablet daily. 5. Lisinopril 10 mg daily. 6. Atorvastatin 40 mg p.o. bedtime. 7. Carafate 1 g every 6 hours. 8. Acetaminophen 650 mg p.o. every 6 hours as needed. 9. Furosemide 20 mg 1 tablet daily. 10. Linzess 72 mcg daily. 11. Xarelto 10 mg p.o. daily 12. Janumet 50/500 mg 1 tablet daily. 13. Vitamin D 3 60816 units as prescribed. 14. Aspirin 81 mg daily. 15. Potassium chloride 10 mEq p.o. daily. REVIEW OF SYSTEMS: As per HPI. Otherwise, 12 point review of system is negative. PHYSICAL EXAMINATION: Vital Signs: Temperature 98.4 degrees, pulse 56, respirations 16, blood pressure 153/71, oxygen saturation 98% on room air. The patient's weight is 187 pounds. BMI is 36.5 kg/m2. General: She is alert and oriented x3. No acute distress. Answering questions appropriately. HEENT: Pale conjunctivae. No icterus. PERRL. Neck: Supple. Lungs: Clear to auscultation. Cardiovascular: Patient is bradycardic. Abdomen: Obese. Tender on the left quadrant and epigastric area. Hypoactive bowel sounds heard in all 4 quadrants. Extremities: No clubbing, no cyanosis, no edema. Pedal pulses 2+ present bilaterally. Neurological: Alert and oriented x3. Nonfocal. Cranial nerves 2-12 grossly intact. LABORATORY: WBCs are 7.78, RBCs 2.46, hemoglobin is 8.8, hematocrit is 27.9, and platelet count is 329,000. No chemistries. The patient's glucose is 79. IMPRESSION AND PLAN: GI Bleed Anemia Diabetes Hypertension History of gastritis CAD s/p stent placement History of diverticulosis PLAN: Ms. Schwartz is an 79-year-old female with a history of hypertension, diabetes, coronary artery disease, gastritis, and diverticulosis. GI has been consulted for her anemia. The patient is currently on Protonix 40 mg p.o. twice a day. She is on Carafate 1 g p.o. every 6 hours per PCP. An EGD was done today to find the cause of her GI bleed and anemia, it was a normal EGD. We will be doing colonoscopy tomorrow and further plan of care will be based on the colonoscopy findings. Discussed the risks, benefits, alternatives of the procedure to the patient. The patient acknowledges understanding of the plan of care. This plan was discussed with Dr. Coto. Thank you for your consult. Please call us for any further questions or concerns. Dictated by NEGAR Galindo for Clay Coto MD cc: Romeo Martin MD Physician Attestation I have seen and examined the patient. I have discussed and reviewed the note by Cate BILLS and agree with findings and plan as documented. [facility]
--- NOTE | 2019-10-06 10:53 | ENDOSCOPY OPERATIVE NOTE ---
[facility] ENDOSCOPY OPERATIVE NOTE , EGD PROCEDURE REPORT EXAM DATE: 10/06/2019 PATIENT NAME: Cecilia Schwartz MR#: [id number] BIRTHDATE: 1940 ATTENDING: Clay Coto MD STATUS: inpatient [employer]ER: INDICATIONS: The patient is a 79 yr old female here for an EGD due to anemia and dark stools concern ing for melena. PROCEDURE PERFORMED: EGD, diagnostic MEDICATIONS: Per Anesthesia ESTIMATED BLOOD LOSS: None CONSENT: The patient understands the risks and benefits of the procedure and understands that these r isks include, but are not limited to: sedation, allergic reaction, infection, perforation and/or bleeding. Alternative means of evaluation and treatment include, among others: physical exam, x-rays, and/or surgical intervention. The patient elects to proceed with this endoscopic procedure. DESCRIPTION OF PROCEDURE: During pre-op preparation period all mechanical and medical equipment was c hecked for proper function. Hand hygiene and appropriate measures for infection prevention was taken. After the risks, benefits and alternatives of the procedure were thoroughly explained, Informed consent was verified, confirmed and timeout was successfully executed by the treatment team. The patient was anesthetized with topical anesthesia and the [id number] ([id number]) endoscope was introduced through the mouth and advanced to the second portion of the duoden um. Retroflexion was performed in the stomach and revealed no abnormalities. The gastroscope was then slowly withdraw n and removed. The patient's toleration of the procedure was excellent. ESOPHAGUS: The EGD was normal. ADVERSE EVENTS: There were no complications. IMPRESSIONS: The EGD was normal RECOMMENDATIONS: 1. Clear liquid diet 2. Prep with 4L Golytely starting at 1800 3. NPO for diagnostic colonoscopy tomorrow REPEAT EXAM: Clay Coto MD eSigned: Clay Coto MD 10/06/2019 10:51 AM CC: CPT CODES: 98467 Upper gastrointestinal endoscopy including esophagus, stomach, and either the du odenum and/or jejunum as appropriate; diagnostic, with or without collection of specimen(s) by brushing or washing (separate procedure) ICD CODES: 285.9 anemia,unspecified The ICD and CPT codes recommended by this software are interpretations from the data that the clinica l staff has captured with the software. The verification of the translation of this report to the ICD and CPT co kelsy and modifiers is the sole responsibility of the health care institution and practicing physician where this report was generated. [employer] will not be held responsible for the validity of the ICD and CPT codes i ncluded on this report. AMA assumes no liability for data contained or not contained herein. CPT is a registered tra demark of the [employer]. PATIENT NAME: Cecilia Schwartz MR#: [id number]
[2019-10-06] MEDS ORDERED: XYLOCAINE-MPF 2% ONE (10:59)
[2019-10-06 11:34] LABS: URINE SOURCE CLEAN CATCH
[2019-10-06 11:40] LABS: BILIRUBIN URINE NEGATIVE (NEGATIVE); BLOOD URINE NEGATIVE (NEGATIVE); COLOR YELLOW; GLUCOSE URINE NEGATIVE (NEGATIVE); KETONE URINE NEGATIVE (NEGATIVE); LEUKOCYTES URINE TRACE (NEGATIVE); NITRITE URINE NEGATIVE (NEGATIVE); PROTEIN URINE NEGATIVE (NEGATIVE); SP GRAVITY URINE 1.017; TURBIDITY URINE CLEAR (CLEAR); UROBILINOGEN URINE NORMAL (NORMAL)
[2019-10-06 11:43] LABS: UR EPITHELIAL CELLS <10 /HPF (<10); URINE BACTERIA NEGATIVE /HPF; URINE RBC <10 /HPF (<10)
[2019-10-06] MEDS: GLUCOPHAGE PO SCH (13:14)
[2019-10-06] MEDS: JANUVIA PO SCH (13:14)
[2019-10-06] MEDS ORDERED: GOLYTELY PO ONE ×2 (14:00→18:00)
[2019-10-06] MEDS: PROTONIX PO SCH ×2 (16:02→21:53)
[2019-10-06 16:46] LABS: BASO# 0.02 X1000 (0.0-0.2); BASO% 0.3 % (0.0-0.8); EOS# 0.14 X1000 (0.0-0.7); EOS% 2.2 % (0.0-10.0); HEMATOCRIT 27.5 % (37.0-47.0); HEMOGLOBIN 8.6 g/dL (12.0-16.0); LYMPH# 2.09 X1000 (1.2-3.4); LYMPH% 32.4 % (20.5-51.1); MCH 25.9 PG (27-31); MCHC 31.3 g/dL (33-37); MCV 82.8 FL (81-99); MONO# 0.36 X1000 (0.11-0.59); MONO% 5.6 % (1.7-9.3); MPV 10.9 FL (7.4-10.4); NEUT# 3.84 X1000 (1.4-6.5); NEUT% 59.5 % (42.2-75.2); PLT 287 X1000 (130-400); RBC 3.32 XMIL (4.2-5.4); WBC 6.45 X1000 (4.8-10.8)
[2019-10-06 17:07] LABS: EOS 2 % (1-10); LARGE PLATELETS OCCASIONAL; LYMPHS 36 % (21-51); MONO 3 % (1-9); SEGS 59 % (42-75); TARGET CELLS OCCASIONAL
[2019-10-06 17:08] LABS: ANISOCYTOSIS OCCASIONAL
[2019-10-06 17:09] LABS: CALCIUM 8.7 mg/dL (8.8-10.2); CREATININE 1.2 mg/dL (0.5-0.9); POTASSIUM 4.2 mmol/L (3.5-5.1)
[2019-10-06] MEDS: LIPITOR PO SCH (21:53)
[2019-10-07] MEDS: CARAFATE LIQUID PO SCH ×4 (04:50→23:23)
[2019-10-07] MEDS: SYNTHROID PO SCH (06:00)
--- NOTE | 2019-10-07 09:46 | PROGRESS NOTE ---
DATE: 10/07/2019 OBJECTIVE: Vital signs: Stable with temperature 98.4 degrees, heart rate 60, respirations 18, blood pressure 113/42, O2 saturation on room air 100%. Chest: Clear. Abdomen: Soft. PLAN: Colonoscopy to determine bleeding site. Stool for blood was positive. If source of bleeding can be determined and is not active at this point, she may be discharged home this evening. cc: Romeo Martin MD
[2019-10-07] MEDS ORDERED: DIPRIVAN 1% ONE (13:10)
[2019-10-07] MEDS ORDERED: EPINEPHRINE SYRINGE ONE (13:18)
--- NOTE | 2019-10-07 13:33 | ENDOSCOPY OPERATIVE NOTE ---
[facility] ENDOSCOPY OPERATIVE NOTE , COLONOSCOPY PROCEDURE REPORT EXAM DATE: 10/07/2019 PATIENT NAME: Cecilia Schwartz MR #: [id number] BIRTHDATE: 1940 ENDOSCOPIST: Rod Lucas MD STATUS: inpatient [employer] MEMBER: INDICATIONS: The patient is a 79 yr old female here for a colonoscopy due to Anemia, Melena. PROCEDURE PERFORMED: Colonoscopy with control of bleeding MEDICATIONS: Per Anesthesia PREP TYPE: GoLytely
[2019-10-07] MEDS: PROTONIX PO SCH ×3 (17:34→23:22)
[2019-10-07] MEDS: PRINIVIL PO SCH (17:34)
[2019-10-07] MEDS: IMDUR PO SCH (17:34)
[2019-10-07] MEDS: GLUCOPHAGE PO SCH (18:50)
[2019-10-07] MEDS: KEPPRA PO SCH ×3 (18:50→23:22)
[2019-10-07] MEDS: JANUVIA PO SCH (18:51)
[2019-10-07] MEDS: LIPITOR PO SCH ×2 (19:43→23:22)
[2019-10-07] MEDS: ICAR-C PO SCH ×2 (19:43→23:21)
[2019-10-07] MEDS: PERIDEX MT SCH ×2 (19:44→23:22)
[2019-10-07] MEDS: METAMUCIL POWDER PACKET PO SCH ×2 (19:44→23:22)
[2019-10-08] MEDS: CARAFATE LIQUID PO SCH (06:30)
[2019-10-08] MEDS: SYNTHROID PO SCH (06:30)
[2019-10-08 07:51] VITALS: BP 144/67
[2019-10-08] MEDS: KEPPRA PO SCH (08:25)
[2019-10-08] MEDS: GLUCOPHAGE PO SCH (08:25)
[2019-10-08] MEDS: IMDUR PO SCH (08:25)
[2019-10-08] MEDS: PERIDEX MT SCH (08:26)
[2019-10-08] MEDS: PROTONIX PO SCH (08:26)
[2019-10-08] MEDS: JANUVIA PO SCH (08:26)
[2019-10-08] MEDS: PRINIVIL PO SCH (08:26)
[2019-10-08] MEDS: ICAR-C PO SCH (08:26)
[2019-10-08] MEDS ORDERED: CENTRUM SILVER PO SCH (09:00)
--- NOTE | 2019-10-08 19:55 | DISCHARGE SUMMARY ---
ADMISSION DATE: 10/05/2019 DISCHARGE DATE: 10/08/2019 FINAL DIAGNOSES: Bleeding at the anastomotic site of previous right hemicolectomy. Consultation with Dr. Lucas. PROCEDURES: EGD on 10/06/2019 and colonoscopy on 10/07/2019. There was cautery and injection of epinephrine into the bleeding site. Bleeding stopped. MEDICINE ADDED: Include psyllium fiber daily, and iron with vitamin C b.i.d. Linzess, Xarelto, and aspirin are discontinued. She was on Xarelto due to history of DVT. HISTORY: This is the first recent [facility] admission for this 79-year-old black female with dark bowel movements and generalized weakness, who presented to the office and was found to have hemoglobin of 3 on fingerstick. She was sent to the hospital for further evaluation and treatment. INITIAL LABORATORY: Hemoglobin 5.9, hematocrit 20.3, and white blood count 7800. Sodium 139, potassium 4.2, BUN 28, creatinine 1.2, calcium 8.7. HOSPITAL COURSE: She was transfused 2 units of blood and her hematocrit kenroy to 27. EGD revealed no source of bleeding. Colonoscopy was done on 10/07, revealing bleeding at the anastomotic site of previous right hemicolectomy. After epinephrine and cautery, this was stopped. Hematocrit this morning is 28. She is feeling well. She is discharged home on the above medications to be seen back in the office in 1 week for followup. Repeat hemoglobin will be done at that time. cc: Romeo Martin MD
== END 2019-10-08 09:48 | disposition home health service (06) | DRG 394 ==
LOC: DIRADM 09:44 → EDIPHOLD 11:49 → 4N 15:40
PROVIDERS: ADMIT Family Medicine; ATTEND Family Medicine